=== PATIENT | male | born 1960 | race Caucasian/White ===

== ENCOUNTER 2018-04-05 09:20 | Emergency (ER) | payer MEDICAID ==
[~2018-04-05] VITALS: Ht 165.1 cm; Wt 75.0 kg
[2018-04-05] MEDS ORDERED: PredniSONE 20 MG TABLET PO ONE (10:45)
[2018-04-05] MEDS ORDERED: ValACYclovir HCL 500 MG TABLET PO ONE (10:45)
[2018-04-05 11:34] VITALS: BP 133/73
== END 2018-04-05 11:41 | disposition home or self-care (01) ==
LOC: EMS 09:24
DX: G51.0 Bell's palsy (principal); I10 Essential (primary) hypertension
CPT/HCPCS: 99283; J7512